=== PATIENT | male | born 1950 | race Caucasian/White ===

== ENCOUNTER 2018-02-20 08:43 | Day surgery (SDC) | payer MEDICARE ==
[~2018-02-20 08:43] MED LIST: Acetaminophen TAB* 325 MG PO PRN; Buffered Lidocaine 0.9% SYRIN* 5 ML/SYR SYRINGE INTRADERM ONE
[2018-02-20] MEDS ORDERED: Midazolam* 1 MG/ML 2 ML VIAL (2 MG) ONE ×3 (09:16→10:36)
[2018-02-20] MEDS ORDERED: fentaNYL* 50 MCG/ML 2 ML VIAL (100 MCG VIAL) ONE (09:16)
[2018-02-20 10:29] VITALS: BP 142/85
--- NOTE | 2018-02-20 11:34 | OP ---
DATE OF OPERATION: 02/20/18 - [facility] DATE OF : 52 SURGEON: Edgar Lindsey MD ANESTHESIA: Monitored anesthesia care. PRE-OP DIAGNOSIS: Cataract, left eye. POST-OP DIAGNOSIS: Cataract, left eye. OPERATIVE PROCEDURE: Extracapsular cataract extraction of the left eye with intraocular lens implant. IMPLANTS: SN60WF 16.5 diopter lens to the left eye. COMPLICATIONS: None. DESCRIPTION OF PROCEDURE: The patient was given phenylephrine 2.5% and cyclopentolate 1% eye drops to the operative eye in the preoperative area. The patient was brought to the operating room where a time-out was taken to identify the correct patient, site, and side of surgery. The patient's left eye was prepped and draped in the usual sterile fashion with 5% Betadine. A second time-out was taken to verify the correct patient, site, and side of surgery and correct lens selection. A lid speculum was placed to the left eye. A 1-mm paracentesis blade was used to make a clear corneal incision in the inferotemporal position. A preservative-free 1% lidocaine was injected into the anterior chamber. DisCoVisc was injected in the anterior chamber. A 2.75- mm keratome blade was used to make a triplanar incision at the superotemporal position. A cystotome initiated a capsulorrhexis, which was completed with Utrata forceps in a continuous and curvilinear manner. Hydrodissection of the lens was performed with BSS on a cannula. The lens could be spun in the capsular bag. The phacoemulsification handpiece was used with a divide-and- conquer technique to remove the nucleus in its entirety with 13.62 CDE. The I/ A handpiece then removed the residual cortical lens material. DisCoVisc was injected to inflate the capsular bag. The planned SN60WF 16.5 diopter lens was injected in the capsular bag. The residual DisCoVisc was removed from the eye with the I/A handpiece. The corneal incisions were hydrated and no leaks occurred at physiologic pressure around 20 mmHg per palpation. The lid speculum was removed and drapes removed. Maxitrol ointment was placed to the surface of the operative eye. An adhesive patch and shield was then placed on the operative eye. The patient was taken to the postoperative area in stable condition. [id number]/[facility] #: [id number] [facility]
[2018-02-20] MEDS ORDERED: Neomycin/Polymy/Dex OPHTH.OIN* 3.5 GM ONE (13:51)
[2018-02-20] MEDS ORDERED: Lidocaine 1% MPF* 2 ML VIAL ONE (13:51)
[2018-02-20] MEDS ORDERED: Tropicamide 1% OPTH.SOL* BTL ONE (13:51)
[2018-02-20] MEDS ORDERED: Ketorolac 0.5% OPHTH (NF) 0.5 % 5 ML BTL ONE (13:51)
[2018-02-20] MEDS ORDERED: Phenylephrine 2.5% OPTH.SOL* 2 ML BTL ONE (13:51)
[2018-02-20] MEDS ORDERED: Tetracaine 0.5% OPTH.SOL 4 ML* 1 DROP BTL ONE (13:51)
[2018-02-20] MEDS ORDERED: acetaZOLAMIDE TAB* 250 MG ONE (13:51)
[2018-02-20] MEDS ORDERED: Cyclopentolate 1% OPTH.SOL* 2 ML BTL ONE (13:51)
[2018-02-20] MEDS ORDERED: Povidone Iodine 5% OPTH* 30 ML BTL ONE (13:51)
== END 2018-02-20 10:33 | disposition home or self-care (01) ==
LOC: OREAST 08:43
PROVIDERS: ATTEND Student in an Organized Health Care Education/Training Program
DX: H25.12 Age-related nuclear cataract, left eye (principal); H43.812 Vitreous degeneration, left eye; H35.52 Pigmentary retinal dystrophy; Z94.7 Corneal transplant status; Z68.30 Body mass index [BMI] 30.0-30.9, adult; E03.9 Hypothyroidism, unspecified
CPT/HCPCS: A9270-GY; J2250; J3010; V2632

== ENCOUNTER 2018-02-27 12:34 | Day surgery (SDC) | payer MEDICARE ==
[2018-02-27] MEDS ORDERED: Midazolam* 1 MG/ML 2 ML VIAL (2 MG) ONE (13:42)
[2018-02-27 15:05] VITALS: BP 145/91
[2018-02-27] MEDS ORDERED: Lidocaine 1% MPF* 2 ML VIAL ONE (16:31)
[2018-02-27] MEDS ORDERED: Tropicamide 1% OPTH.SOL* BTL ONE (16:31)
[2018-02-27] MEDS ORDERED: Tetracaine 0.5% OPTH.SOL 4 ML* 1 DROP BTL ONE (16:31)
[2018-02-27] MEDS ORDERED: Povidone Iodine 5% OPTH* 30 ML BTL ONE (16:31)
[2018-02-27] MEDS ORDERED: Cyclopentolate 1% OPTH.SOL* 2 ML BTL ONE (16:31)
[2018-02-27] MEDS ORDERED: Neomycin/Polymy/Dex OPHTH.OIN* 3.5 GM ONE (16:31)
[2018-02-27] MEDS ORDERED: Phenylephrine 2.5% OPTH.SOL* 2 ML BTL ONE (16:31)
[2018-02-27] MEDS ORDERED: acetaZOLAMIDE TAB* 250 MG ONE (16:31)
[2018-02-27] MEDS ORDERED: Ketorolac 0.5% OPHTH (NF) 0.5 % 5 ML BTL ONE (16:31)
--- NOTE | 2018-02-27 22:37 | OP ---
OPERATIVE REPORT: DATE OF OPERATION: 02/27/18 - [facility] DATE OF : 52 SURGEON: Edgar Lindsey MD ANESTHESIOLOGIST: Shaylee Calvin MD ANESTHESIA: Monitored anesthesia care. 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 POST-OP DIAGNOSIS: Cataract, right eye with history of corneal transplant, right eye. OPERATIVE PROCEDURE: Extracapsular cataract extraction of the right eye with intraocular lens implant. IMPLANTS: SN60WF 18.0 diopter lens to the right eye. COMPLICATIONS: None. DESCRIPTION OF PROCEDURE: The patient was given phenylephrine 2.5% and cyclopentolate 1% eyedrops to the operative eye in the preoperative area. The patient was brought to the operating room where a time-out was taken to identify the correct patient, site and side of surgery. The patient's right eye was prepped and draped in the usual sterile fashion with 5% Betadine. A second time-out was taken to verify the correct patient, site and side of surgery, and correct lens selection. A lid speculum was placed to the right eye. A 1-mm paracentesis blade was used to make a clear corneal incision in the superotemporal position. Preservative-free 1% lidocaine was injected into the anterior chamber. DisCoVisc was injected to the anterior chamber. A 2.75- mm keratome blade was used to make a triplanar incision at the inferotemporal position. A cystotome initiated a capsulorrhexis, which was completed with Utrata forceps in a continuous and curvilinear manner. Hydrodissection of the lens was performed with BSS on a cannula. The lens could be spun in the capsular bag. The phacoemulsification handpiece was used with a divide-and- conquer technique to remove the nucleus in its entirety with 8.56 CDE. The I/A handpiece then removed the residual cortical lens material. DisCoVisc was injected to inflate the capsular bag. During the insertion of the planned SN60WF 18.0 diopter lens, an anterior rent was noted opposite the main incision. As the rent was not propagated posteriorly and the lens was in place , the decision was made to keep the SN60WF lens in position and the haptics were rotated 90 degrees from the location of the rent. A corneal suture was then placed at the main incision site due to the history of the corneal transplant. The corneal incisions were hydrated and no leaks occurred at physiologic pressure around 20 mmHg per palpation. The lid speculum was removed and drapes removed. Maxitrol ointment was placed to the surface of the operative eye. An adhesive patch and shield was then placed on the operative eye. The patient was taken to the postoperative area in stable condition. [id number]/[facility] #: [id number] [facility]
== END 2018-02-27 15:14 | disposition home or self-care (01) ==
LOC: OREAST 12:34
PROVIDERS: ATTEND Student in an Organized Health Care Education/Training Program
DX: H25.11 Age-related nuclear cataract, right eye (principal); H43.812 Vitreous degeneration, left eye; H35.52 Pigmentary retinal dystrophy; Z94.7 Corneal transplant status; E03.9 Hypothyroidism, unspecified
CPT/HCPCS: A9270-GY; J2250; V2632